=== PATIENT | female | born 2000 | race Caucasian/White ===

== ENCOUNTER 2024-03-03 13:00 | Observation (INO) | payer OTHER ==
[~2024-03-03] VITALS: Ht 167.6 cm; Wt 61.2 kg
[~2024-03-03 13:00] MED LIST: BENZ100A PO
[2024-03-03 13:47] LABS: BASOPHILS ABSOLUTE AUTO 0.04 K/mm3 (0.00-0.23); BASOPHILS PERCENT AUTO 1 % (0-2); EOSINOPHILS ABSOLUTE AUTO 0.12 K/mm3 (0.00-0.68); EOSINOPHILS PERCENT AUTO 3 % (0-6); IMMATURE GRAN ABSOLUTE AUTO 0.01 K/mm3 (0.00-0.10); IMMATURE GRAN PERCENT AUTO 0 % (0-1); LYMPHOCYTES ABSOLUTE AUTO 0.99 K/mm3 (0.84-5.20); LYMPHOCYTES PERCENT AUTO 22 % (21-46); MONOCYTES ABSOLUTE AUTO 0.55 K/mm3 (0.16-1.47); MONOCYTES PERCENT AUTO 12 % (4-13); Mean Corpuscular HGB 27.5 pg (26.0-34.0); Mean Corpuscular HGB Conc 31.7 g/dL (31.5-36.5); Mean Corpuscular Volume 87 fL (80-100); Mean Platelet Volume 12.1 fL (9.1-12.4); NEUTROPHILS ABSOLUTE AUTO 2.89 K/mm3 (1.96-9.15); NEUTROPHILS PERCENT AUTO 63 % (41-73); Platelet Count 193 K/mm3 (150-400); RDW Coefficient Variation 13.9 % (11.7-14.2); RDW Standard Deviation 44.7 fL (35.1-46.3); Red Blood Cell Count 4.73 M/mm3 (3.80-5.20)
[2024-03-03 13:56] LABS: Source, Urine Clean Catch
[2024-03-03 14:00] LABS: Appearance, Urine Clear (Clear); Bilirubin, Urine Neg (Neg); Blood, Urine 1+ (Neg); Color, Urine Yellow (P-Yellow); Glucose Qualitative, Urine Neg (Neg); Ketones, Urine Neg (Neg); Leukocyte Esterase, Urine Neg (Neg); Nitrite, Urine Neg (Neg); Protein, Urine 1+ (Neg); Specific Gravity, Urine 1.015 (1.003-1.022); Urobilinogen, Urine NORM (Normal)
[2024-03-03 14:17] LABS: Mucus Light (0-Heavy)
[2024-03-03 14:18] LABS: Bacteria Few /hpf; Red Blood Cells, Urine 0-2 /hpf (0-2); Squamous Epithelial Cells Few /hpf (Few); White Blood Cells, Urine 0-2 /hpf (0-5)
[2024-03-03 14:20] LABS: U Amphetamine Screen Not Detected; U Barbituate Screen Not Detected; U Benzodiazapine Screen Not Detected; U Buprenorphine Screen Not Detected; U Cannabinoids Screen Not Detected; U Cocaine Screen Not Detected; U Methadone Screen Not Detected; U Methamphetamine Screen Not Detected; U Opiates Screen Not Detected; U Oxycodone Screen Not Detected; U Phencyclidine Screen Not Detected
[2024-03-03] MEDS ORDERED: SERT25 PO (14:20)
[2024-03-03] MEDS ORDERED: HYDHCL25 PO (14:21)
[2024-03-03] MEDS ORDERED: TRAZ50 PO (14:21)
[2024-03-03 14:28] LABS: Chloride, Blood 109 mmol/L (98-108); Sodium, Blood 140 mmol/L (136-145)
[2024-03-03 15:24] LABS: Alanine Aminotransfer (ALT/SGP 28 U/L (12-78); Albumin/Globulin Ratio 1.1 (0.8-1.8); Alk Phos 75 U/L (50-136); Anion Gap 11 mmol/L (3-11); Aspartate Aminotrans (AST/SGOT 28 U/L (12-37); Bilirubin, Total 0.2 mg/dL (0.1-1.0); Blood Urea Nitrogen 13 mg/dL (8-24); Bun/Creatinine Ratio 18.6 (12.0-20.0); CO2, Blood 24 mmol/L (21-32); Calcium, Blood 8.6 mg/dL (8.5-10.1); Globulin, Blood 3.8 g/dL (2.2-4.0); Glomerular Filtration Rate 125 (60-); Glucose, Blood 88 mg/dL (70-99); Total Protein, Blood 7.8 g/dL (6.4-8.2)
[2024-03-03 16:04] LABS: Ethanol (Alcohol), Blood, Med <3 mg/dL; Salicylate <1.7 mg/dL (2.8-20.0); Thyroxine (T4) 8.4 ug/dL (4.8-13.9)
[2024-03-03 16:05] LABS: Acetaminophen, Random <2.0 ug/mL (10.0-30.0)
[2024-03-03] MEDS ORDERED: TraZODone HCl 50 MG Tab PO SCH (21:00)
[2024-03-04 00:59] LABS: Influenza A, PCR NEGATIVE (NEGATIVE); Influenza B, PCR NEGATIVE (NEGATIVE); Resp Syncytial Virus, PCR NEGATIVE (NEGATIVE); SARS-Cov-2 (COVID-19) PCR, MMC NEGATIVE (NEGATIVE)
== END 2024-03-04 12:52 | disposition home or self-care (01) ==
LOC: ER 13:00 → EOR 13:01
PROVIDERS: Emergency Medicine; Student in an Organized Health Care Education/Training Program; ADMIT Emergency Medicine
DX: F43.21 Adjustment disorder with depressed mood (principal); F32.9 Major depressive disorder, single episode, unspecified; T43.222A Poisoning by selective serotonin reuptake inhibitors, intentional self-harm, initial encounter; T39.1X2A Poisoning by 4-Aminophenol derivatives, intentional self-harm, initial encounter; Z88.0 Allergy status to penicillin
CPT/HCPCS: 0241U; 71046; 80053; 81001; 81025; 84436; 84443; 85025; 93005; 93010; 99285-25; A9270; G0378; G0480

== ENCOUNTER 2024-03-18 10:55 | Emergency (ER) | payer OTHER ==
[~2024-03-18] VITALS: Ht 167.6 cm; Wt 59.0 kg
[~2024-03-18 10:55] MED LIST changes: +HYDHCL25 PO; +SERT25 PO; +TRAZ50 PO
== END 2024-03-18 12:02 | disposition left against medical advice (07) ==
LOC: ER 10:55
DX: R11.2 Nausea with vomiting, unspecified (principal); Z88.0 Allergy status to penicillin; Z79.899 Other long term (current) drug therapy
CPT/HCPCS: 81025; 99281